=== PATIENT | male | born 1960 | race Caucasian/White ===

== ENCOUNTER 2023-07-09 13:20 | Outpatient (AMB) | payer OTHER, SELFPAY ==
--- NOTE | 2023-07-09 13:28 | MHC.PC.OV ---
Vital Signs 07/09/23 13:41 Height 5 ft 11 in Weight 241 lb BMI 33.6 BP 126/82 Blood Pressure Location Lt brachial Position Sitting Pulse 86 Pulse Source Pulse Oximeter Pulse Oximetry (%) 96 Oxygen Delivery Method Room Air Intake Visit Reasons: PE new pt ok per Dr. Soto needs BP meds Intake Note: Pt is here today for a PE. Pt states that he needs a refill on his BP med. Pt states that 2 of his PCP retired. Allergies No Known Allergies Allergy (Verified 07/09/23 13:45) Medication List - Last Reconciled 07/09/23 by Grace Soto MD amlodipine 5 mg PO DAILY Tobacco use date assessed: 07/09/23 Dental Screening Dental Screen Date: 07/09/23 Did you have a dental visit in the last 12 months?: Yes Did you have a dental problem in the last 6 months where you did not have access to dental care?: No Was dental information given to patient?: Patient has dentist HPI PE new pt ok per Dr. Soto needs BP meds HPI Details Pt presents for TRAPPER [employer]IM[employer] PE. Pt started Amlodipine 5 mg 3 weeks ago for HTN and has been tolerating medication well. He has been under stress because his was diagnosed with liver tumor and will have a biopsy. [facility] Surgical History (Updated 07/09/23 @ 14:20 by Grace Soto MD) No pertinent past surgical history Family History Father Hypertension Mother No problems noted. Social History (Updated 07/09/23 @ 14:18 by Grace Soto MD) Household Members Other:: , ownd business excavation, 2 adult children Housing: House Patient Tobacco Use Status: Never used Tobacco e-Cigarette/Vaping Use: Never Used service: No Current occupational status: employed Cognitive needs: No Hearing needs: No Vision needs: Yes Questionnaire PHQ-9 Over the last 2 weeks, how often have you been bothered by any of the following problems? 1. Little interest or pleasure in doing things: not at all 2. Feeling down, depressed, or hopeless: not at all 3. Trouble falling or staying asleep, or sleeping too much: not at all 4. Feeling tired or having little energy: not at all 5. Poor appetite or overeating: not at all 6. Feeling bad about yourself - or that you are a failure or have let yourself or your family down: not at all 7. Trouble concentrating on things, such as reading the newspaper or watching television: not at all 8. Moving or speaking so slowly that other people could have noticed. Or the opposite - being so fidgety or restless that you have been moving around a lot more than usual: not at all 9. Thoughts that you would be better off or of hurting yourself in some way: not at all Total score: 0 Depression Screening Interpretation: Negative Depression Screening Done: Yes Source: Developed by Drs. Otf Ward, Molly Vieyra, Dante Osuna and colleagues, with an educational martha from [employer]. Thrive Questionnaire Date Thrive assessed: 07/09/23 I am a: Patient What is your living situation today?: I have a steady place to live Within the past 12 months, did the food you bought not last and you didn't have the money to get more?: Never true Within the past 12 months, did you worry whether your food would run out before you got money to buy more?: Never true Do you have trouble paying for medicines?: No Do you have trouble getting transportation to medical appointments?: No Do you have trouble paying your heating and electricity bill?: No Do you have trouble taking care of your child, family member or friend?: No Do you have trouble with day-to-day activities such as bathing, preparing meals, shopping, managing finances, etc.?: No Are you currently unemployed and looking for a job?: No Are you interested in more education?: No Please select the resources that you would like help with: None THRIVE Score: 0 AUDIT C Alcohol Use Questionnaire (AUDIT-C) 1. How often do you have a drink containing alcohol?: 2-4 times a month 2. How many drinks containing alcohol do you have on a typical day when you are drinking?: 1 or 2 3. How often do you have six or more drinks on one occasion?: Never Total Score: 2 ADRIANNA-7 AMB Questionnaire ADRIANNA-7 Date ADRIANNA - 7 assessed: 07/09/23 Feeling nervous, anxious, or on edge: 0 = Not at all Not being able to stop or control worryin = Not at all Worrying too much about different things: 0 = Not at all Trouble relaxin = Not at all Being so restless that it is hard to sit still: 0 = Not at all Becoming easily annoyed or irritable: 0 = Not at all Feeling afraid as if something awful might happen: 0 = Not at all Total ADRIANNA-7 score (0-4 normal; 5-9 mild; 10-14 moderate; 15-21 severe): 0 Source: Developed by Drs. Otf Ward, Molly Vieyra, Dante Osuna and colleagues, with an educational martha from [employer]. Review of Systems Const All systems reviewed & are unremarkable except as noted in HPI and below Eyes Reports no additional complaints ENT Reports no additional complaints Card Reports no additional complaints Resp Reports no additional complaints GI Reports no additional complaints Reports no additional complaints Physical exam (Primary Care) Vital Signs: Last Vital Signs Pulse 86 07/09/23 13:41 BP 126/82 07/09/23 13:41 Pulse Ox 96 07/09/23 13:41 Oxygen Delivery Method Room Air 07/09/23 13:41 BMI result Body Mass Index 33.6 Tobacco/Smoking Status: Tobacco use Status Tobacco use date assessed 07/09/23 07/09/23 13:48 Patient Tobacco Use Status Never used Tobacco 07/09/23 13:48 e-Cigarette/Vaping Use Never Used 07/09/23 13:48 PHQ-9: PHQ-9 Score PHQ-9: Total score 0 07/09/23 13:52 Depression Screening Interpretation: Negative Thrive Assessment: Date of Thrive Assessment Date Thrive assessed 07/09/23 07/09/23 13:52 Const General: no acute distress HENMT Head: Yes normal to inspection General nose exam: Normal external nose present Mouth: Normal oral and palatal mucosa present Throat: Yes posterior oropharynx normal Eyes General: appearance normal, both eyes and all related structures Neck Neck: Yes no lymphadenopathy and Yes supple Resp Effort & Inspection: normal respiratory effort Auscultation: clear to auscultation bilaterally Cardio Rhythm: regular rhythm Heart sounds: S1 normal heart sound present and S2 normal heart sound present GI Inspection: Yes normal to inspection Palpation (GI): Soft to palpation Percussion: Yes normal to percussion Auscultation: normal bowel sounds Assessment and Plan Assessment & Plan (1) Hx of colonoscopy: Comment: negative 2012, [facility], will call with the name of GI Code(s): Z98.890 - Other specified postprocedural states Plan: Patient is due for colonoscopy and will call with the name of his GI (2) HTN (hypertension): Code(s): I10 - Essential (primary) hypertension Plan: Continue amlodipine increase physical activity (3) Hyperlipidemia: Comment: Used to take Lipitor Code(s): E78.5 - Hyperlipidemia, unspecified Plan: Patient will return for fasting blood work (4) Annual physical exam: Code(s): Z00.00 - Encounter for general adult medical examination without abnormal findings Plan: Well-balanced diet regular physical activity weight loss discussed with the patient he will return in 3 months Orders: Orders Lipid Panel Today E78.5 - Hyperlipidemia, unspecified, I10 - Essential (primary) hypertension, Z00.00 - Encounter for general adult medical examination without abnormal findings PSA,Total (Free>4and<10) Today E78.5 - Hyperlipidemia, unspecified, I10 - Essential (primary) hypertension, Z00.00 - Encounter for general adult medical examination without abnormal findings UA w Microscopic Today E78.5 - Hyperlipidemia, unspecified, I10 - Essential (primary) hypertension, Z00.00 - Encounter for general adult medical examination without abnormal findings Comprehensive [place]. Panel Fast Today E78.5 - Hyperlipidemia, unspecified, I10 - Essential (primary) hypertension, Z00.00 - Encounter for general adult medical examination without abnormal findings Complete Blood Count Auto Diff Today E78.5 - Hyperlipidemia, unspecified, I10 - Essential (primary) hypertension, Z00.00 - Encounter for general adult medical examination without abnormal findings Medications: New amlodipine 5 mg PO DAILY 90 tabs 0RF Coding Level of Care Code New Pt Prev Care 40-64y(67487) Diagnoses Hx of colonoscopy Z98.890 HTN (hypertension) I10 Hyperlipidemia E78.5 Annual physical exam Z00.00
[2023-07-09 13:41] VITALS: BP 126/82; PULSE 86; O2SAT 96; BMI 33.6
== END 2023-07-09 14:15 | disposition home or self-care (01) ==
PROVIDERS: PCP Internal Medicine; Visit Provider Internal Medicine
DX: Z98.890 Other specified postprocedural states (principal); I10 Essential (primary) hypertension; E78.5 Hyperlipidemia, unspecified; Z00.00 Encounter for general adult medical examination without abnormal findings
CPT/HCPCS: 99386

== ENCOUNTER 2023-10-14 10:05 | Outpatient (AMB) | payer OTHER, SELFPAY ==
[2023-10-14 10:06] VITALS: BP 136/86; PULSE 62; O2SAT 97; BMI 33.7
--- NOTE | 2023-10-14 10:06 | A.OFFPC_ITS ---
Vital Signs 10/14/23 10:06 Height 5 ft 11 in Weight 242 lb BMI 33.7 BP 136/86 Blood Pressure Location Lt brachial Position Sitting Pulse 62 Pulse Source Pulse Oximeter Pulse Oximetry (%) 97 Oxygen Delivery Method Room Air Intake Visit Reasons: 3 month follow up Intake Note: Pt is here today for 3 months follow up visit. Allergies No Known Allergies Allergy (Verified 10/14/23 10:06) Medication List - Last Reconciled 10/14/23 by Grace Soto MD amlodipine 5 mg PO DAILY Tobacco use date assessed: 10/14/23 Dental Screening Dental Screen Date: 07/09/23 HPI 3 month follow up HPI Details Patient presents for the follow-up on hypertension controlled on amlo dipine. Patient has been under stress because his was diagnosed with pancreatic cancer and has been getting chemotherapy in [place]. PENDING SALE TO [facility] Surgical History (Updated 10/14/23 @ 11:10 by Grace Soto MD) No pertinent past surgical history Family History Father Hypertension Mother No problems noted. 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 1. Little interest or pleasure in doing things: not at all 2. Feeling down, depressed, or hopeless: not at all 3. Trouble falling or staying asleep, or sleeping too much: not at all 4. Feeling tired or having little energy: not at all 5. Poor appetite or overeating: not at all 6. Feeling bad about yourself - or that you are a failure or have let yourself or your family down: not at all 7. Trouble concentrating on things, such as reading the newspaper or watching television: not at all 8. Moving or speaking so slowly that other people could have noticed. Or the opp osite - being so fidgety or restless that you have been moving around a lot more than usual: not at all 9. Thoughts that you would be better off or of hurting yourself in some way: not at all Total score: 0 Depression Screening Interpretation: Negative Depression Screening Done: Yes Source: Developed by Drs. Otf Ward, Molly Vieyra, Dante Osuna and colleagues, with an educational martha from [employer]. Thrive Questionnaire Date Thrive assessed: 10/14/23 I am a: Patient What is your living situation today?: I have a steady place to live Within the past 12 months, did the food you bought not last and you didn't have the money to get more?: Never true Within the past 12 months, did you worry whether your food would run out before you got money to buy more?: Never true Do you have trouble paying for medicines?: No Do you have trouble getting transportation to medical appointments?: No Do you have trouble paying your heating and electricity bill?: No Do you have trouble taking care of your child, family member or friend?: No Do you have trouble with day-to-day activities such as bathing, preparing meals, shopping, managing finances, etc.?: No Are you currently unemployed and looking for a job?: No Are you interested in more education?: No Please select the resources that you would like help with: None Currently or been in a relationship where the following occur: No concerns reported THRIVE Score: 0 AUDIT C Alcohol Use Questionnaire (AUDIT-C) 1. How often do you have a drink containing alcohol?: 2-4 times a month 2. How many drinks containing alcohol do you have on a typical day when you are drinking?: 1 or 2 3. How often do you have six or more drinks on one occasion?: Never Total Score: 2 ADRIANNA-7 AMB Questionnaire ADRIANNA-7 Date ADRIANNA - 7 assessed: 10/14/23 Feeling nervous, anxious, or on edge: 0 = Not at all Not being able to stop or control worryin = Not at all Worrying too much about different things: 0 = Not at all Trouble relaxin = Not at all Being so restless that it is hard to sit still: 0 = Not at all Becoming easily annoyed or irritable: 0 = Not at all Feeling afraid as if something awful might happen: 0 = Not at all Total ADRIANNA-7 score (0-4 normal; 5-9 mild; 10-14 moderate; 15-21 severe): 0 Source: Developed by Drs. Otf Ward, Molly Vieyra, Dante Osuna and colleagues, with an educational martha from [employer]. ADRIANNA-7 Assessment Billing ADRIANNA-7 Assessment Tool: ADRIANNA-7 Assessment 80698 Review of Systems Const All systems reviewed & are unremarkable except as noted in HPI and below Card Reports no additional complaints Resp Reports no additional complaints GI Reports no additional complaints Reports no additional complaints Physical exam (Primary Care) Vital Signs: Last Vital Signs Pulse 62 10/14/23 10:06 BP 136/86 10/14/23 10:06 Pulse Ox 97 10/14/23 10:06 Oxygen Delivery Method Room Air 10/14/23 10:06 BMI result Body Mass Index 33.7 Tobacco/Smoking Status: Tobacco use Status Tobacco use date assessed 10/14/23 10/14/23 10:07 Patient Tobacco Use Status Never used Tobacco 10/14/23 10:07 e-Cigarette/Vaping Use Never Used 10/14/23 10:07 PHQ-9: PHQ-9 Score PHQ-9: Total score 0 10/14/23 10:11 Depression Screening Interpretation: Negative Thrive Assessment: Date of Thrive Assessment Date Thrive assessed 10/14/23 10/14/23 10:11 Currently or been in a relationship where the following occur: No concerns reported Const General: no acute distress HENMT Face and sinus: Yes normal facial exam Eyes General: appearance normal, both eyes and all related structures Neck Neck: Yes supple Resp Effort & Inspection: normal respiratory effort Auscultation: clear to auscultation bilaterally Cardio Rhythm: regular rhythm Heart sounds: S1 normal heart sound present and S2 normal heart sound present Assessment and Plan Assessment & Plan (1) Annual physical exam: Code(s): Z00.00 - Encounter for general adult medical examination without abnormal findings (2) Hyperlipidemia: Comment: Used to take Lipitor Code(s): E78.5 - Hyperlipidemia, unspecified Plan: Continue low-cholesterol diet patient will return for fasting blood work (3) HTN (hypertension): Code(s): I10 - Essential (primary) hypertension Plan: Continue amlodipine (4) Overweight: Code(s): E66.3 - Overweight Plan: Increase physical activity decrease caloric intake and weight loss discussed with the patient Orders: Referrals Gastroenterology Referral Z00.00 - Encounter for general adult medical examination without abnormal findings Coding Level of Care Code Est Pt Level 4 (65600) Diagnoses Annual physical exam Z00.00 Hyperlipidemia E78.5 HTN (hypertension) I10 Overweight E66.3 Additional Codes ADRIANNA-7 Assessment Billing - ADRIANNA-7 Assessment Tool: ADRIANNA-7 Assessment 86323 ([id number])
== END 2023-10-14 11:39 | disposition home or self-care (01) ==
PROVIDERS: PCP Internal Medicine; Visit Provider Internal Medicine
DX: E78.5 Hyperlipidemia, unspecified (principal); I10 Essential (primary) hypertension; E66.3 Overweight; Z68.33 Body mass index [BMI] 33.0-33.9, adult
CPT/HCPCS: 99214

== ENCOUNTER 2024-02-03 07:25 | Outpatient (REF) | payer OTHER, SELFPAY ==
[2024-02-03 10:10] LABS: MANUAL DIFF FLAG NO
[2024-02-03 10:27] LABS: Basophils Absolute Auto 0.1 X10*3/uL (0.0-0.2); Basophils Percent Auto 0.9 % (0-2); Eosinophils Absolute Auto 0.2 X10*3/uL (0.0-0.4); Hematocrit 44.8 % (42.0-52.0); Hemoglobin 14.8 g/dl (14.0-18.0); Imm Gran Abs Auto 0.01 X10*3/uL (0.00-0.03); Imm Gran Pct Auto 0.2 % (0.0-0.4); Lymphocytes Absolute Auto 1.9 X10*3/uL (1.2-4.9); Lymphocytes Percent Auto 35.4 % (20-40); Mean Corpuscular Hemoglobin 30.1 pg (27.0-33.0); Mean Corpuscular Volume 91.1 fL (80.0-98.0); Mean Platelet Volume 9.7 fL (9.4-12.4); Monocytes Absolute Auto 0.7 X10*3/uL (0.1-1.2); Monocytes Percent Auto 13.4 % (2-11); Neutrophils Absolute Auto 2.4 x10*3/uL (2.0-8.3); Neutrophils Percent Auto 46.1 % (45-73); Platelet Count 224 X10*3/uL (160-400); Red Blood Count 4.92 X10*6/uL (4.60-5.80); Red Cell Distribution Width 12.9 % (11.0-16.0); White Blood Count 5.3 X10*3/uL (4.8-10.8)
[2024-02-03 10:58] LABS: Albumin Level 4.4 g/dL (3.5-5.0); Alkaline Phosphatase 72 U/L (39-117); Anion Gap 12 (12-20); Aspartate Amino Transferase 27 U/L (5-37); Bilirubin Total 0.5 mg/dL (0.0-1.0); Blood Urea Nitrogen 19 mg/dL (9-16); Calcium 9.4 mg/dL (8.4-10.2); Carbon Dioxide 25 mmol/L (22-29); Chloride 107 mmol/L (96-108); Cholesterol 255 mg/dL (<200); Estimated Glomerular Filt Rate > 60; Glucose Fasting 126 mg/dL (60-99); HDL Cholesterol 44 mg/dL (>40); LDL Cholesterol Calculated 179 mg/dL (<100); Potassium 4.4 mmol/L (3.3-5.1); Sodium 140 mmol/L (135-145); Total Protein 7.7 g/dL (6.5-8.0); Triglycerides 160 mg/dL (<150)
[2024-02-03 11:05] LABS: Appearance Urine Turbid; Color Urine Yellow; Glucose Urine UA Negative (Negative); Leukocyte Esterase Urine Negative (Negative); Nitrite Urine Negative (Negative); PH 5.5 (5.0-9.0); Specific Gravity - Urine 1.025 (1.005-1.025); Urine Blood Negative (Negative); Urine Ketones Negative (Negative); Urine Protein Negative (Neg-Trace)
[2024-02-03 11:09] LABS: Bacteria Urine None Seen (None Seen); Hyaline Casts Urine 0-2 /LPF (0-2); PSA,Total (Free>4and<10) 0.44 ng/mL (0.00-4.00); RBC Urine 0-2 /HPF (0-2); Squamous Epithelial Cell Urine 0-2 /HPF (0-2); WBC Urine 0-5 /HPF (0-5)
[2024-02-03 11:59] LABS: Alanine Aminotransferase 26 U/L (0-40)
== END 2024-02-03 07:26 | disposition home or self-care (01) ==
LOC: HO.HMGCLDS 07:25
PROVIDERS: PCP Internal Medicine; Visit Provider Internal Medicine
DX: I10 Essential (primary) hypertension (principal); E78.5 Hyperlipidemia, unspecified; Z00.00 Encounter for general adult medical examination without abnormal findings; Z12.5 Encounter for screening for malignant neoplasm of prostate
CPT/HCPCS: 36415; 80053; 80061; 81001; 84153; 85025; 99212

== ENCOUNTER 2024-02-03 07:25 | Outpatient (AMB) | payer OTHER, SELFPAY ==
[2024-02-03 07:33] VITALS: BP 132/80; PULSE 70; O2SAT 97; BMI 33.6
--- NOTE | 2024-02-03 07:33 | MHC.PC.OV ---
Vital Signs 02/03/24 07:33 Height 5 ft 11 in Weight 241 lb BMI 33.6 BP 132/80 Blood Pressure Location Lt brachial Position Sitting Pulse 70 Pulse Source Pulse Oximeter Pulse Oximetry (%) 97 Oxygen Delivery Method Room Air Intake Visit Reasons: Follow up Intake Note: Pt is here today for his f/u Allergies No Known Allergies Allergy (Verified 10/14/23 10:06) Medication List - Last Reconciled 02/03/24 by Grace Soto MD amlodipine 5 mg PO DAILY Tobacco use date assessed: 02/03/24 Dental Screening Dental Screen Date: 02/03/24 Did you have a dental visit in the last 12 months?: Yes Did you have a dental problem in the last 6 months where you did not have access to dental care?: No Was dental information given to patient?: Patient has dentist HPI Follow up HPI Details Pt presents for HTN, stable on Amlodipine. [facility] Surgical History No pertinent past surgical history Family History Father Hypertension Mother No problems noted. 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: House Patient Tobacco Use Status: Never used Tobacco e-Cigarette/Vaping Use: Never Used service: No Current occupational status: employed Cognitive needs: No Hearing needs: No Vision needs: Yes Questionnaire Thrive Questionnaire Date Thrive assessed: 10/10/23 I am a: Patient What is your living situation today?: I have a steady place to live Within the past 12 months, did the food you bought not last and you didn't have the money to get more?: Never true Within the past 12 months, did you worry whether your food would run out before you got money to buy more?: Never true Do you have trouble paying for medicines?: No Do you have trouble getting transportation to medical appointments?: No Do you have trouble paying your heating and electricity bill?: No Do you have trouble taking care of your child, family member or friend?: No Do you have trouble with day-to-day activities such as bathing, preparing meals, shopping, managing finances, etc.?: No Are you currently unemployed and looking for a job?: No Are you interested in more education?: No Please select the resources that you would like help with: None Currently or been in a relationship where the following occur: No concerns reported THRIVE Score: 0 ADRIANNA-7 AMB Questionnaire ADRIANNA-7 Date ADRIANNA - 7 assessed: 10/14/23 Source: Developed by Drs. Otf Ward, Molly Vieyra, Dante Osuna and colleagues, with an educational martha from [employer]. Review of Systems Const All systems reviewed & are unremarkable except as noted in HPI and below Eyes Reports no additional complaints ENT Reports no additional complaints Card Reports no additional complaints Resp Reports no additional complaints GI Reports no additional complaints Reports no additional complaints Physical exam (Primary Care) Vital Signs: Last Vital Signs Pulse 70 02/03/24 07:33 BP 132/80 02/03/24 07:33 Pulse Ox 97 02/03/24 07:33 Oxygen Delivery Method Room Air 02/03/24 07:33 BMI result Body Mass Index 33.6 Tobacco/Smoking Status: Tobacco use Status Tobacco use date assessed 02/03/24 02/03/24 07:36 Patient Tobacco Use Status Never used Tobacco 02/03/24 07:36 e-Cigarette/Vaping Use Never Used 02/03/24 07:36 Thrive Assessment: Date of Thrive Assessment Date Thrive assessed 10/10/23 02/03/24 07:36 Currently or been in a relationship where the following occur: No concerns reported Const General: no acute distress HENMT Ears: hearing grossly normal bilaterally Face and sinus: Yes normal facial exam Neck Neck: Yes supple Resp Effort & Inspection: normal respiratory effort Auscultation: clear to auscultation bilaterally Cardio Rhythm: regular rhythm Heart sounds: S1 normal heart sound present and S2 normal heart sound present Coding Level of Care Code Est Pt Level 3 (22333) Diagnoses HTN (hypertension) I10 Hyperlipidemia E78.5 Assessment & Plan Assessment & Plan (1) HTN (hypertension): Code(s): I10 - Essential (primary) hypertension Category: Medical Plan: Continue amlodipine (2) Hyperlipidemia: Comment: Used to take Lipitor Code(s): E78.5 - Hyperlipidemia, unspecified Category: Medical Plan: Patient will have a fasting blood work today. If cholesterol is elevated he will restart Lipitor and follow-up in 3 months Orders: Orders Lipid Panel 3 Months E78.5 - Hyperlipidemia, unspecified, I10 - Essential (primary) hypertension Comprehensive [place]. Panel Fast 3 Months E78.5 - Hyperlipidemia, unspecified, I10 - Essential (primary) hypertension Medications: Refilled amlodipine 5 mg PO DAILY 90 tabs 3RF
--- OUTSIDE RECORDS SUMMARY | 2024-02-09 16:15 | XMS_ITS | Data Portability ---
Author Organization [place] - [facility], [id number] Address [address] [place] [address] Assessment No assessment recorded. Plan of Treatment Reminders Order Date Submit Date Provider Last Modified By Organization Details Last Modified Time Details Appointments None record ed. Lab None record ed. Referral None record ed. Procedures None record ed. Surgeries None record ed. Imaging None record ed. Medication Orders None record ed. Patient TargetsNo targets recorded. Patient InstructionsNo instructions recorded. Reason for Referral None Reported. Procedures Surgical History Date Name Laterality Status Provider Name and Address Organization Details Recorded Time OC-DOT PHYSICAL completed Jazmin STOREY - [facility] 06/13/2023 12:06:47 Imaging Results None recorded. Procedure Notes None recorded. Medical Equipment None Reported. Medications Name Sig Start Date Stop Date Status Note LastModified by Organization Details LastModified Time prednisone 50 mg tablet TAKE 1 TABLET BY MOUTH EVERY DAY FOR 5 DAYS active Not Available Not Available No t Available Vitals None Recorded Social History None recorded. Functional Status None recorded. Mental Status None recorded. Family History Nothing Reported. Medical History No medical history recorded. Past Encounters Encounter ID Performer Location Encounter Start Date Encounter Closed Date Diagnosis/Indication Diagnosis SNOMED-CT Code Diagnosis ICD10 Code [id number] [facility] [address] [address] 07/17/2019 10:01:05 07/17/2019 11:10:16 [id number] Polo Chau [facility] [address] [address] 06/13/2023 11:02:17 06/13/2023 13:27:45 Catering Associate license medical examination [id number] Z02.4 Physical examination 588 0005 Z02.4 History an d physical examination, pre-employment [id number] Z02.1 Health Concerns Section Related Observation LastModified by Organization Detai ls LastModified Time None Recorded Concern Status LastModified by Organization Details LastModified Time None Recorded Advance Directives Directive None Recorded Payers Encounter Date Sequence Insurance Name Policy Number Policy Odell Covered Member ID Odell Member ID Guarantor Name 07/17/2019 1 [place] Otf Menjivar [id number] Otf Menjivar 06/13/2023 OC-PAY AT TIME OF SERVICE 2022 Otf Menjivar OTHER Otf Menjivar Notes Date Note Type Note Provider Name and Address Organization Details Recorded Time 06/13/2023 text/html PhysicalReported bypatient.source of patient informationpatient; Patient arrived at Urgent Care ambulatory 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
== END 2024-02-03 09:59 | disposition home or self-care (01) ==
PROVIDERS: PCP Internal Medicine; Visit Provider Internal Medicine
DX: I10 Essential (primary) hypertension (principal); E78.5 Hyperlipidemia, unspecified

== ENCOUNTER 2024-05-02 13:50 | Outpatient (AMB) | payer OTHER, SELFPAY ==
[2024-05-02 14:05] VITALS: BP 122/74; PULSE 87; RESP 18; TEMP 36.9; O2SAT 97; BMI 33.9
--- NOTE | 2024-05-02 14:05 | MHC.PC.OV ---
Vital Signs 05/02/24 14:05 Height 5 ft 11 in Weight 243 lb BMI 33.9 BP 122/74 Blood Pressure Location Lt brachial Position Sitting Respiration 18 Pulse 87 Pulse Source Pulse Oximeter Temp 98.4 F Temp Source Oral Pulse Oximetry (%) 97 Oxygen Delivery Method Room Air Intake Visit Reasons: 3m follow up Intake Note: Pt is here today for 3 months follow up visit. Allergies No Known Allergies Allergy (Verified 05/02/24 14:07) Medication List - Last Reconciled 05/02/24 by Grace Soto MD amlodipine 5 mg PO DAILY atorvastatin (Lipitor) 20 mg PO DAILY Tobacco use date assessed: 05/02/24 Dental Screening Dental Screen Date: 05/02/24 Did you have a dental visit in the last 12 months?: Yes Did you have a dental problem in the last 6 months where you did not have access to dental care?: No Was dental information given to patient?: Patient has dentist HPI 3m follow up HPI Details Patient presents for the follow-up of hypertension hyperlipidemia. Patient's from pancreatic cancer 3 weeks ago. [facility] Surgical History No pertinent past surgical history Family History Father Hypertension Mother No problems noted. Social History (Updated 05/02/24 @ 15:13 by Grace Soto MD) Household Members Other:: , owns business excavation, 2 adult children Housing: House Patient Tobacco Use Status: Never used Tobacco e-Cigarette/Vaping Use: Never Used service: No Current occupational status: employed Cognitive needs: No Hearing needs: No Vision needs: Yes Questionnaire PHQ-9 Over the last 2 weeks, how often have you been bothered by any of the following problems? 1. Little interest or pleasure in doing things: not at all 2. Feeling down, depressed, or hopeless: not at all 3. Trouble falling or staying asleep, or sleeping too much: not at all 4. Feeling tired or having little energy: not at all 5. Poor appetite or overeating: not at all 6. Feeling bad about yourself - or that you are a failure or have let yourself or your family down: not at all 7. Trouble concentrating on things, such as reading the newspaper or watching television: not at all 8. Moving or speaking so slowly that other people could have noticed. Or the opposite - being so fidgety or restless that you have been moving around a lot more than usual: not at all 9. Thoughts that you would be better off or of hurting yourself in some way: not at all Total score: 0 Depression Screening Interpretation: Negative Depression Screening Done: Yes 50186 - PHQ-9 Billing: Yes Source: Developed by Drs. Otf Ward, Molly Vieyra, Dante Osuna and colleagues, with an educational martha from [employer]. Thrive Questionnaire Date Thrive assessed: 05/02/24 I am a: Patient What is your living situation today?: I have a steady place to live Within the past 12 months, did the food you bought not last and you didn't have the money to get more?: Never true Within the past 12 months, did you worry whether your food would run out before you got money to buy more?: Never true Do you have trouble paying for medicines?: No Do you have trouble getting transportation to medical appointments?: No Do you have trouble paying your heating and electricity bill?: No Do you have trouble taking care of your child, family member or friend?: No Do you have trouble with day-to-day activities such as bathing, preparing meals, shopping, managing finances, etc.?: No Are you currently unemployed and looking for a job?: No Are you interested in more education?: No Please select the resources that you would like help with: None Currently or been in a relationship where the following occur: No concerns reported THRIVE Score: 0 AUDIT C Alcohol Use Questionnaire (AUDIT-C) 1. How often do you have a drink containing alcohol?: 2-4 times a month 2. How many drinks containing alcohol do you have on a typical day when you are drinking?: 1 or 2 3. How often do you have six or more drinks on one occasion?: Never Total Score: 2 ADRIANNA-7 AMB Questionnaire ADRIANNA-7 Date ADRIANNA - 7 assessed: 05/02/24 Feeling nervous, anxious, or on edge: 0 = Not at all Not being able to stop or control worryin = Not at all Worrying too much about different things: 0 = Not at all Trouble relaxin = Not at all Being so restless that it is hard to sit still: 0 = Not at all Becoming easily annoyed or irritable: 0 = Not at all Feeling afraid as if something awful might happen: 0 = Not at all Total ADRIANNA-7 score (0-4 normal; 5-9 mild; 10-14 moderate; 15-21 severe): 0 Source: Developed by Drs. Otf Ward, Molly Vieyra, Dante Osuna and colleagues, with an educational martha from [employer]. ADRIANNA-7 Assessment Billing ADRIANNA-7 Assessment Tool: ADRIANNA-7 Assessment 00400 Review of Systems Const All systems reviewed & are unremarkable except as noted in HPI and below ENT Reports no additional complaints Card Reports no additional complaints Resp Reports no additional complaints GI Reports no additional complaints Reports no additional complaints Physical exam (Primary Care) Vital Signs: Last Vital Signs Temp 98.4 F 05/02/24 14:05 Pulse 87 05/02/24 14:05 Resp 18 05/02/24 14:05 BP 122/74 05/02/24 14:05 Pulse Ox 97 05/02/24 14:05 Oxygen Delivery Method Room Air 05/02/24 14:05 BMI result Body Mass Index 33.9 Tobacco/Smoking Status: Tobacco use Status Tobacco use date assessed 05/02/24 05/02/24 14:11 Patient Tobacco Use Status Never used Tobacco 05/02/24 14:11 e-Cigarette/Vaping Use Never Used 05/02/24 14:11 PHQ-9: PHQ-9 Score PHQ-9: Total score 0 05/02/24 14:11 Depression Screening Interpretation: Negative Thrive Assessment: Date of Thrive Assessment Date Thrive assessed 05/02/24 05/02/24 14:11 Currently or been in a relationship where the following occur: No concerns reported Const General: no acute distress Resp Effort & Inspection: normal respiratory effort Auscultation: clear to auscultation bilaterally Cardio Rhythm: regular rhythm Heart sounds: S1 normal heart sound present and S2 normal heart sound present GI Inspection: Yes normal to inspection Palpation (GI): Soft to palpation Percussion: Yes normal to percussion Auscultation: normal bowel sounds Coding Level of Care Code Est Pt Level 3 (92365) Diagnoses Hx of colonoscopy Z98.890 HTN (hypertension) I10 Hyperlipidemia E78.5 Abnormal skin growth D49.2 Additional Codes ADRIANNA-7 Assessment Billing - ADRIANNA-7 Assessment Tool: ADRIANNA-7 Assessment 95620 ([id number]) PHQ-9 - 01736 - PHQ-9 Billing: Yes ([id number]) Assessment & Plan Assessment & Plan (1) Hx of colonoscopy: Comment: negative 2012, [facility], will call with the name of GI Dr. Morgan Code(s): Z98.890 - Other specified postprocedural states Category: Surgical Plan: Patient will schedule colonoscopy with GI (2) HTN (hypertension): Code(s): I10 - Essential (primary) hypertension Category: Medical Plan: Continue amlodipine (3) Hyperlipidemia: Comment: Used to take Lipitor Code(s): E78.5 - Hyperlipidemia, unspecified Category: Medical Plan: Continue atorvastatin return for fasting blood work (4) Abnormal skin growth: Code(s): D49.2 - Neoplasm of unspecified behavior of bone, soft tissue, and skin Category: Medical Plan: Referred to [employer] [facility] [employer] dermatology Orders: Orders Lipid Panel 3 Months E78.5 - Hyperlipidemia, unspecified, I10 - Essential (primary) hypertension, R73.9 - Hyperglycemia, unspecified, Z00.00 - Encounter for general adult medical examination without abnormal findings UA w Microscopic 3 Months E78.5 - Hyperlipidemia, unspecified, I10 - Essential (primary) hypertension, R73.9 - Hyperglycemia, unspecified, Z00.00 - Encounter for general adult medical examination without abnormal findings Hemoglobin A1c 3 Months E78.5 - Hyperlipidemia, unspecified, I10 - Essential (primary) hypertension, R73.9 - Hyperglycemia, unspecified, Z00.00 - Encounter for general adult medical examination without abnormal findings Complete Blood Count no Diff 3 Months E78.5 - Hyperlipidemia, unspecified, I10 - Essential (primary) hypertension, R73.9 - Hyperglycemia, unspecified, Z00.00 - Encounter for general adult medical examination without abnormal findings Comprehensive [place]. Panel Fast 3 Months E78.5 - Hyperlipidemia, unspecified, I10 - Essential (primary) hypertension, R73.9 - Hyperglycemia, unspecified, Z00.00 - Encounter for general adult medical examination without abnormal findings Referrals Dermatology Referral D49.2 - Neoplasm of unspecified behavior of bone, soft tissue, and skin, E78.5 - Hyperlipidemia, unspecified, I10 - Essential (primary) hypertension, R73.9 - Hyperglycemia, unspecified, Z00.00 - Encounter for general adult medical examination without abnormal findings
--- OUTSIDE RECORDS SUMMARY | 2024-05-02 16:25 | XMS_ITS | Data Portability ---
Author Organization [place] - [facility], [id number] Address [address] [place] [address] Assessment No assessment recorded. Plan of Treatment [...] Time OC-DOT PHYSICAL completed Jazmin STOREY - [facility] 06/13/2023 12:06:47 Imaging Results None recorded. [...] Diagnosis/Indication Diagnosis SNOMED-CT Code Diagnosis ICD10 Code Diagnosis Note [id number] [address] [facility] [address] [phone] 07/17/2019 10:01:05 07/17/2019 11:10:16 [id number] Pol[place]au [place] [address] [place] [phone] 06/13/2023 11:02:17 06/13/2023 13:27:45 Project Engineering Manager license medical examination [id number] Z02.4 Physical examination 588 0005 Z02.4 History an d physical examination, pre-employment [id number] Z02.1 This physical does not replace the annual physical to be performed by your PCP. There may be additional screening tests that they will perform that we do not in the urgent care setting.Fa ilure to follow up as recommende d may result in significan t adverse health consequenc es.???If your symptoms worsen or you develop new symptoms that concern you, go to the emergency department for further evaluation . Health Concerns Section Related Observation LastModified by Organization Detai ls LastModified Time None Recorded Concern Status LastModified by Organization Details LastModified Time None Recorded Advance Directives Directive None Recorded Payers Encounter Date Sequence Insurance Name Policy Number Policy Odell Covered Member ID Odell Member ID Guarantor Name 07/17/2019 1 [place] STEPHANIE (PPO) Otf Menjivar [id number] Otf Menjivar 06/13/2023 OC-PAY AT TIME OF SERVICE 2022 Otf Menjivar OTHER Otf Menjivar Notes Date Note Type Note Provider Name and Address Organization Details Recorded Time 06/13/2023 text/html PhysicalReported bypatient.source of patient informationpatient; Patient arrived at Urgent Care ambulatory 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
== END 2024-05-02 14:55 | disposition home or self-care (01) ==
PROVIDERS: PCP Internal Medicine; Visit Provider Internal Medicine
DX: Z98.890 Other specified postprocedural states (principal); I10 Essential (primary) hypertension; E78.5 Hyperlipidemia, unspecified; D49.2 Neoplasm of unspecified behavior of bone, soft tissue, and skin

== ENCOUNTER → 2024-05-02 13:50 | Outpatient (BNVA) | payer OTHER, SELFPAY | PROVIDERS: PCP Internal Medicine; Visit Provider Internal Medicine | DX: I10 Essential (primary) hypertension (principal); E78.5 Hyperlipidemia, unspecified; D49.2 Neoplasm of unspecified behavior of bone, soft tissue, and skin; Z98.890 Other specified postprocedural states | CPT/HCPCS: 96127; 99212 ==

== ENCOUNTER 2024-11-18 10:34 | Outpatient (AMB) | payer OTHER, SELFPAY ==
--- NOTE | 2024-11-18 10:51 | MHC.PC.OV ---
Vital Signs 11/18/24 11:05 Height 5 ft 11 in Weight 251 lb BMI 35.0 BP 130/82 Blood Pressure Location Lt brachial Position Sitting Respiration 19 Pulse 73 Pulse Source Pulse Oximeter Temp 98.5 F Temp Source Oral Pulse Oximetry (%) 96 Oxygen Delivery Method Room Air Intake Visit Reasons: Annual PE Intake Note: Pt is here today for PE. Allergies No Known Allergies Allergy (Verified 11/18/24 11:14) Medication List - Last Reconciled 11/18/24 by Grace Soto MD amlodipine 5 mg PO DAILY atorvastatin (Lipitor) 20 mg PO DAILY Tobacco use date assessed: 11/18/24 Dental Screening Dental Screen Date: 05/02/24 HPI Annual PE HPI Details Patient presents for physical PFSH Medical History (Updated 11/18/24 @ 13:33 by Grace Soto MD) Annual physical exam Overweight Hyperglycemia Hyperlipidemia HTN (hypertension) Surgical History (Updated 11/18/24 @ 13:33 by Grace Soto MD) Hx of colonoscopy No pertinent past surgical history Family History Father Hypertension Mother No problems noted. Social History Household Members Other:: , owns business excavation, 2 adult children Housing: House Patient Tobacco Use Status: Never used Tobacco e-Cigarette/Vaping Use: Never Used service: No Current occupational status: employed Cognitive needs: No Hearing needs: No Vision needs: Yes Questionnaire PHQ-9 Over the last 2 weeks, how often have you been bothered by any of the following problems? 1. Little interest or pleasure in doing things: not at all 2. Feeling down, depressed, or hopeless: not at all 3. Trouble falling or staying asleep, or sleeping too much: not at all 4. Feeling tired or having little energy: not at all 5. Poor appetite or overeating: not at all 6. Feeling bad about yourself - or that you are a failure or have let yourself or your family down: not at all 7. Trouble concentrating on things, such as reading the newspaper or watching television: not at all 8. Moving or speaking so slowly that other people could have noticed. Or the opposite - being so fidgety or restless that you have been moving around a lot more than usual: not at all 9. Thoughts that you would be better off or of hurting yourself in some way: not at all Total score: 0 Depression Screening Interpretation: Negative Depression Screening Done: Yes Source: Developed by Drs. Otf Ward, Molly Vieyra, Dante Osuna and colleagues, with an educational martha from [employer]. Thrive Questionnaire Date Thrive assessed: 05/02/24 I am a: Patient What is your living situation today?: I have a steady place to live Within the past 12 months, did the food you bought not last and you didn't have the money to get more?: Never true Within the past 12 months, did you worry whether your food would run out before you got money to buy more?: Never true Do you have trouble paying for medicines?: No Do you have trouble getting transportation to medical appointments?: No Do you have trouble paying your heating and electricity bill?: No Do you have trouble taking care of your child, family member or friend?: No Do you have trouble with day-to-day activities such as bathing, preparing meals, shopping, managing finances, etc.?: No Are you currently unemployed and looking for a job?: No Are you interested in more education?: No Please select the resources that you would like help with: None Currently or been in a relationship where the following occur: No concerns reported THRIVE Score: 0 ADRIANNA-7 AMB Questionnaire ADRIANNA-7 Date ADRIANNA - 7 assessed: 05/02/24 Feeling nervous, anxious, or on edge: 0 = Not at all Not being able to stop or control worryin = Not at all Worrying too much about different things: 0 = Not at all Trouble relaxin = Not at all Being so restless that it is hard to sit still: 0 = Not at all Becoming easily annoyed or irritable: 0 = Not at all Feeling afraid as if something awful might happen: 0 = Not at all Total ADRIANNA-7 score (0-4 normal; 5-9 mild; 10-14 moderate; 15-21 severe): 0 Source: Developed by Drs. Otf Ward, MollyDante Calderón and colleagues, with an educational martha from [employer]. Review of Systems Const All systems reviewed & are unremarkable except as noted in HPI and below Eyes Reports no additional complaints ENT Reports no additional complaints Card Reports no additional complaints Resp Reports no additional complaints GI Reports no additional complaints Reports no additional complaints Physical exam (Primary Care) Vital Signs: Last Vital Signs Temp 98.5 F 11/18/24 11:05 Pulse 73 11/18/24 11:05 Resp 19 11/18/24 11:05 BP 130/82 11/18/24 11:05 Pulse Ox 96 11/18/24 11:05 Oxygen Delivery Method Room Air 11/18/24 11:05 BMI result Body Mass Index 35.0 Tobacco/Smoking Status: Tobacco use Status Tobacco use date assessed 11/18/24 11/18/24 11:16 Patient Tobacco Use Status Never used Tobacco 11/18/24 10:51 e-Cigarette/Vaping Use Never Used 11/18/24 10:51 PHQ-9: PHQ-9 Score PHQ-9: Total score 0 11/18/24 11:16 Depression Screening Interpretation: Negative Thrive Assessment: Date of Thrive Assessment Date Thrive assessed 05/02/24 11/18/24 10:51 Currently or been in a relationship where the following occur: No concerns reported Const General: no acute distress HENMT Head: Yes normal to inspection Face and sinus: Yes normal facial exam Throat: Yes posterior oropharynx normal Resp Effort & Inspection: normal respiratory effort Auscultation: clear to auscultation bilaterally Cardio Rhythm: regular rhythm Heart sounds: S1 normal heart sound present and S2 normal heart sound present GI Inspection: Yes normal to inspection Palpation (GI): Soft to palpation Percussion: Yes normal to percussion Auscultation: normal bowel sounds Coding Level of Care Code Est Pt Prev Care 40-64y(09958) Diagnoses HTN (hypertension) I10 Annual physical exam Z00.00 Hyperglycemia R73.9 Assessment & Plan Assessment & Plan (1) HTN (hypertension): Code(s): I10 - Essential (primary) hypertension Category: Medical Plan: Continue amlodipine (2) Annual physical exam: Code(s): Z00.00 - Encounter for general adult medical examination without abnormal findings Category: Medical Plan: Well-balanced diet regular physical activity weight loss discussed with the patient he has an appointment scheduled with Dr. Valencia for colonoscopy (3) Hyperglycemia: Code(s): R73.9 - Hyperglycemia, unspecified Category: Medical Plan: ADA diet regular exercise weight loss discussed with the patient will monitor A1 Orders: Orders Microalbumin, Random (w Creat) 3 Months E78.5 - Hyperlipidemia, unspecified, I10 - Essential (primary) hypertension, R73.9 - Hyperglycemia, unspecified Comprehensive [place]. Panel Fast 3 Months E78.5 - Hyperlipidemia, unspecified, I10 - Essential (primary) hypertension, R73.9 - Hyperglycemia, unspecified Complete Blood Count Auto Diff 3 Months E78.5 - Hyperlipidemia, unspecified, I10 - Essential (primary) hypertension, R73.9 - Hyperglycemia, unspecified Hemoglobin A1c 3 Months E78.5 - Hyperlipidemia, unspecified, I10 - Essential (primary) hypertension, R73.9 - Hyperglycemia, unspecified Lipid Panel 3 Months E78.5 - Hyperlipidemia, unspecified, I10 - Essential (primary) hypertension, R73.9 - Hyperglycemia, unspecified PSA,Total (Free>4and<10) 3 Months E78.5 - Hyperlipidemia, unspecified, I10 - Essential (primary) hypertension, R73.9 - Hyperglycemia, unspecified
[2024-11-18 11:05] VITALS: BP 130/82; PULSE 73; RESP 19; TEMP 36.9; O2SAT 96; BMI 35.0
--- OUTSIDE RECORDS SUMMARY | 2024-11-18 11:15 | XMS_ITS | Clinical Summary ---
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 30 tablet 06/13/2023 Active Social History Tobacco Use Types Packs/Day Years Used Date Smoking Tobacco: Never Assessed Education Answer Date Recorded Are you interested in more education? Not on teena e 06/13/2023 Are you concerned about learning? Not on file 06/13/2023 No 06/13/2023 No 06/13/2023 Digital Access Answer Date Recorded No 06/13/2023 No 06/13/2023 Reliable internet access at home? Not on file 06/13/2023 Device with a working camera? Not on file Intimate Partner Violence Answer Date R ecorded Are you denied basic needs s uch as food, clothing, or medical care? No 06/13/2023 In the past 12 months have y ou been in a relationship with a person who hurts, threatens, or tries to control you? No 06/13/2023 Are you denied basic needs s uch as food, clothing, or medical care? No 06/13/2023 In the past 12 months have y ou been in a relationship with a person who hurts, threatens, or tries to control you? No 06/13/2023 Sex and Gender Information Value Date Recorded Sex Assigned at Male 06/13/2023 2:30 PM EDT Legal Sex Male 2:10 PM EDT Gender Identity Male 06/13/2023 2:30 PM EDT Sexual Orientation Not on file Last Filed Vital Signs Vital Sign Reading Time Taken Comments Blood Pressure 176/95 06/13/2023 7:58 PM EDT Pulse 65 06/13/2023 7:58 PM EDT Temperature 36.9 C (98.4 F) 06/13/2023 7:58 PM EDT Respiratory Rate 14 06/13/2023 7:58 PM EDT Oxygen Saturation 98% 06/13/2023 7:58 PM EDT Inhaled Oxygen Concentration - - Weight 108.9 kg (240 lb) 06/13/2023 2:29 PM EDT Height 180.3 cm (5' 11 ) 06/13/2023 2:29 PM EDT Body Mass Index 33.47 06/13/2023 2:29 PM EDT Plan of Treatment Health Maintenance Due Date Last Done Comments Adult Td,Tdap Booster 1961 LIPID PANEL 1961 DEPRESSION SCREENING 1973 SMOKING Hx and SMOKELESS TOB ACCO SCREENING 1974 HEPATITIS C SCREENING 1979 HIV ONE-TIME SCREENING (18-6 5 YEARS) 1979 SCREENING FOR DIABETES 01/14/1996 COLOGUARD 2006 COLONOSCOPY 2006 COLORECTAL CANCER SCREENING 2006 FIT TEST 2006 FOBT 2006 SIGMOIDOSCOPY 2006 VIRTUAL COLONOSCOPY 2006 PNEUMOCOCCAL VACCINES (50+ y ears) (1 of 1 - PCV) 2011 ZOSTER VACCINES (1 of 2) 2011 INFLUENZA VACCINE (#1) 2024 COVID-19 VACCINE (1 - 2023-2 5 season) 2024 RSV VACCINE (1 - 1-dose 75+ series) 01/14/2036 HEPATITIS A VACCINES Aged Out No long er eligible based on patient's age to complete this topic HIB VACCINES Aged Out No longer eligi ble based on patient's age to complete this topic MENINGOCOCCAL VACCINES (ACWY) Aged Out No longer eligible based on patient's age to complete this topic MENINGOCOCCAL VACCINES (B) Aged Out N o longer eligible based on patient's age to complete this topic Medical Devices Not on file Insurance [facility] DIRECT [facility] DIRECT [facility] DIRECT [facility] DIRECT Care Teams Wood Boat Builder Supervisor Relationship Specialty Start Date End Date Pcp, Unknown PCP - General 06/13/23 Additional Source Comments The information contained in this document represents components of the legal health record. It is not the complete legal health record.[facility]
== END 2024-11-18 12:00 | disposition home or self-care (01) ==
LOC: HO.HMCC 10:36
PROVIDERS: PCP Internal Medicine; Visit Provider Internal Medicine
DX: I10 Essential (primary) hypertension (principal); Z00.00 Encounter for general adult medical examination without abnormal findings; R73.9 Hyperglycemia, unspecified

== ENCOUNTER → 2024-11-18 10:34 | Outpatient (BNVA) | payer OTHER, SELFPAY | PROVIDERS: PCP Internal Medicine; Visit Provider Internal Medicine | DX: Z00.00 Encounter for general adult medical examination without abnormal findings (principal); I10 Essential (primary) hypertension; R73.9 Hyperglycemia, unspecified; E78.5 Hyperlipidemia, unspecified | CPT/HCPCS: 96127; 99396 ==